=== PATIENT | female | born 1945 | race Two or more races ===

== ENCOUNTER → 2017-10-13 | Outpatient (CLI) | payer OTHER | END | disposition home or self-care (01) | LOC: HKI 16:09 | DX: M17.0 Bilateral primary osteoarthritis of knee (principal) | CPT/HCPCS: 73564; 73564-50 ==

== ENCOUNTER 2017-10-31 11:15 | Outpatient (CLI) | payer OTHER | END 2017-11-07 | disposition home or self-care (01) | LOC: HKI 11:15 | DX: M25.562 Pain in left knee (principal); M25.561 Pain in right knee | CPT/HCPCS: 20610 ==

== ENCOUNTER 2018-01-24 07:24 | Day surgery (SDC) | payer OTHER ==
[2018-01-24] MEDS ORDERED: LIDOCAINE 2% (SDV) 5 ML INJ (09:05)
[2018-01-24] MEDS ORDERED: PROPOFOL 60 ML (09:05)
== END 2018-01-24 11:17 | disposition home or self-care (01) ==
LOC: GIL 07:24
DX: Z12.11 Encounter for screening for malignant neoplasm of colon (principal); K57.90 Diverticulosis of intestine, part unspecified, without perforation or abscess without bleeding; K64.4 Residual hemorrhoidal skin tags; I10 Essential (primary) hypertension; E78.5 Hyperlipidemia, unspecified; E66.9 Obesity, unspecified; Z68.28 Body mass index [BMI] 28.0-28.9, adult
CPT/HCPCS: 45378

== ENCOUNTER 2018-10-23 11:46 | Day surgery (SDC) | payer OTHER ==
[2018-10-23] MEDS ORDERED: PROPOFOL 20 ML (12:51)
== END 2018-10-23 15:14 | disposition home or self-care (01) ==
LOC: GIL 11:46
DX: K29.30 Chronic superficial gastritis without bleeding (principal); I10 Essential (primary) hypertension; E78.5 Hyperlipidemia, unspecified
CPT/HCPCS: 43239; 88305; 88312